=== PATIENT | male | born 1975 | race African-American/Black ===

== ENCOUNTER → 2017-09-30 | Outpatient (CLI) | payer BC ==
[2017-09-30 11:32] LABS: HEMATOCRIT 49.1 % (37.9-51.0); HEMOGLOBIN 16.6 g/dL (13.5-17.0); MEAN CORPUSCULAR HEMOGLOBIN 28.6 pg (27.0-33.4); MEAN CORPUSCULAR HGB CONC 33.8 g/dL (32.0-36.0); MEAN CORPUSCULAR VOLUME 85 fl (80-97); PLATELET COUNT 213 10^3/uL (150-450); RED CELL DISTRIBUTION WIDTH 13.8 % (11.5-14.0); WHITE BLOOD COUNT 5.9 10^3/uL (4.0-10.5)
[2017-09-30 12:08] LABS: ANION GAP 11 (5-19); BLOOD UREA NITROGEN 19 mg/dL (7-20); CARBON DIOXIDE 27 mmol/L (22-30); CHLORIDE 104 mmol/L (98-107); GLUCOSE 85 mg/dL (75-110); POTASSIUM 3.9 mmol/L (3.6-5.0); SODIUM 141.9 mmol/L (137-145)
== END ==
LOC: OD 10:21
PROVIDERS: ATTEND Internal Medicine Nephrology
DX: I12.9 Hypertensive chronic kidney disease with stage 1 through stage 4 chronic kidney disease, or unspecified chronic kidney disease (principal); N18.3 Chronic kidney disease, stage 3 (moderate); I50.9 Heart failure, unspecified
CPT/HCPCS: 36415; 80048; 85027

== ENCOUNTER → 2018-12-30 | Outpatient (CLI) | payer BC ==
--- NOTE | 2018-12-31 22:18 | XCELERA REPORT ---
[address] [address] Transthoracic Echocardiogram Report Name: GUY CURIEL Age: 43 yrs Gender: Male : 1975 Patient Status: Preadmit Patient Location: RAD Study Date: 12/30/2018 09:16 AM Height: 75 in Weight: 330 lb BSA: 2.7 m2 Procedure: A two-dimensional transthoracic echocardiogram with color flow and Doppler was performed. Study Quality: Good. Reason For Study: MURMUR Hypertension (I10). History: MURMUR / HTN (I10). Ordering Physician: JAYLA STEIN Performed By: Martha Treadwell Interpretation Summary The left ventricle is normal in size. The left ventricular ejection fraction is within normal limits. LV EF is 65% There is moderate concentric left ventricular hypertrophy. Doppler measurements suggest normal left ventricular diastolic function The left ventricular wall motion is normal. There is no thrombus. There is no ventricular septal defect visualized. The right ventricle is grossly normal size. The right atrium is normal. The left atrium is moderately dilated. The interatrial septum is intact with no evidence for an atrial septal defect. There is no Doppler evidence for an interatrial shunt There is no evidence of mitral valve prolapse. There is no vegetation seen on the mitral valve. There is no mitral valve stenosis. There is a trace amount of mitral regurgitation There is no aortic valvular vegetation. There is no aortic valve stenosis There is no LVOT obstruction. No aortic regurgitation is present. There is no tricuspid stenosis. There is a trace amount of tricuspid regurgitation Right ventricular systolic pressure is normal. RVSP is 25 to 30 mm of Hg , with RAmean of 5 to 10. There is no pulmonic valvular stenosis. There is a trace amount of pulmonic regurgitation The aortic root is normal size. The inferior vena cava appeared normal There is no pericardial effusion. MMode/2D Measurements & Calculations RVDd: 4.5 cm LVIDd: 5.6 cm FS: 36.2 % Ao root diam: 3.0 cm IVSd: 1.4 cm LVIDs: 3.6 cm EDV(Teich): LVPWd: 1.4 cm 154.0 ml Ao root area: ESV(Teich): 7.2 cm2 53.6 ml LA dimension: EF(Teich): 65.2 % 4.8 cm LVLd ap4: 10.4 cm SV(MOD-sp4): EDV(MOD-sp4): 112.0 ml 193.0 ml LVLs ap4: 8.8 cm ESV(MOD-sp4): 81.0 ml EF(MOD-sp4): 58.0 % Doppler Measurements & Calculations MV E max annamaria: MV P1/2t max annamaria: Ao V2 max: LV V1 max P.2 cm/sec 65.6 cm/sec 108.6 cm/sec 3.1 mmHg MV A max annamaria: MV P1/2t: 83.4 msec Ao max PG: LV V1 max: 53.8 cm/sec MVA(P1/2t): 2.6 cm2 4.7 mmHg 87.9 cm/sec MV E/A: 1.2 MV dec slope: 230.7 cm/sec2 MV dec time: 0.27 sec PA V2 max: PI end-d annamaria: TR max annamaria: MV P1/2t-pr_phl: 79.5 cm/sec 137.9 cm/sec 224.8 cm/sec 83.4 msec PA max PG: TR max P.5 mmHg 20.2 mmHg Left Ventricle The left ventricle is normal in size. There is moderate concentric left ventricular hypertrophy. The left ventricular ejection fraction is within normal limits. LV EF is 65%. Doppler measurements suggest normal left ventricular diastolic function. The left ventricular wall motion is normal. There is no thrombus. There is no ventricular septal defect visualized. Right Ventricle The right ventricle is grossly normal size. The right ventricle is not well visualized secondary to technical limitations. Atria The right atrium is normal. The left atrium is moderately dilated. The interatrial septum is intact with no evidence for an atrial septal defect. There is no Doppler evidence for an interatrial shunt. Mitral Valve There is no evidence of mitral valve prolapse. There is no vegetation seen on the mitral valve. There is no mitral valve stenosis. There is a trace amount of mitral regurgitation. Aortic Valve There is no aortic valvular vegetation. There is no aortic valve stenosis. There is no LVOT obstruction. No aortic regurgitation is present. Tricuspid Valve There is no tricuspid stenosis. There is a trace amount of tricuspid regurgitation. Right ventricular systolic pressure is normal. RVSP is 25 to 30 mm of Hg , with RAmean of 5 to 10. Pulmonic Valve There is no pulmonic valvular stenosis. There is a trace amount of pulmonic regurgitation. Great Vessels The aortic root is normal size. The inferior vena cava appeared normal. Effusions There is no pericardial effusion. : JAYLA STEIN > Jayla Stein
== END ==
LOC: RAD 08:42
PROVIDERS: ATTEND Specialist
DX: R01.1 Cardiac murmur, unspecified (principal)
CPT/HCPCS: 93306

== ENCOUNTER → 2019-04-02 | Outpatient (CLI) | payer BC ==
[2019-04-02 14:37] LABS: HEMOGLOBIN 16.3 g/dL (13.5-17.0); MEAN CORPUSCULAR HEMOGLOBIN 28.8 pg (27.0-33.4); MEAN CORPUSCULAR HGB CONC 33.9 g/dL (32.0-36.0); MEAN CORPUSCULAR VOLUME 85 fl (80-97); PLATELET COUNT 201 10^3/uL (150-450); RED BLOOD COUNT 5.65 10^6/uL (4.35-5.55); RED CELL DISTRIBUTION WIDTH 13.7 % (11.5-14.0); WHITE BLOOD COUNT 7.2 10^3/uL (4.0-10.5)
[2019-04-02 15:07] LABS: ANION GAP 9 (5-19); BLOOD UREA NITROGEN 23 mg/dL (7-20); CALCIUM 9.7 mg/dL (8.4-10.2); CARBON DIOXIDE 31 mmol/L (22-30); CHLORIDE 102 mmol/L (98-107); GLUCOSE 88 mg/dL (75-110); POTASSIUM 4.6 mmol/L (3.6-5.0)
== END ==
LOC: OD 13:07
PROVIDERS: ATTEND Internal Medicine Nephrology
DX: I13.0 Hypertensive heart and chronic kidney disease with heart failure and stage 1 through stage 4 chronic kidney disease, or unspecified chronic kidney disease (principal); N18.3 Chronic kidney disease, stage 3 (moderate); I50.9 Heart failure, unspecified
CPT/HCPCS: 36415; 80048; 85027

== ENCOUNTER → 2019-04-22 | Outpatient (CLI) | payer BC ==
[2019-04-22 11:24] LABS: ABSOLUTE EOSINOPHILS # (AUTO) 0.2 10^3/uL (0.0-0.6); ABSOLUTE LYMPHOCYTES (AUTO) 1.8 10^3/uL (0.5-4.7); ABSOLUTE MONOCYTES (AUTO) 0.6 10^3/uL (0.1-1.4); ABSOLUTE NEUT (AUTO) 3.8 10^3/uL (1.7-8.2); BASOPHILS % (AUTO) 0.4 % (0-2); EOSINOPHILS % (AUTO) 3.5 % (0-6); HEMATOCRIT 48.2 % (37.9-51.0); HEMOGLOBIN 16.3 g/dL (13.5-17.0); LYMPHOCYTES % (AUTO) 27.9 % (13-45); MEAN CORPUSCULAR HEMOGLOBIN 28.8 pg (27.0-33.4); MEAN CORPUSCULAR HGB CONC 33.9 g/dL (32.0-36.0); MEAN CORPUSCULAR VOLUME 85 fl (80-97); MONOCYTES % (AUTO) 9.1 % (3-13); PLATELET COUNT 207 10^3/uL (150-450); RED BLOOD COUNT 5.66 10^6/uL (4.35-5.55); RED CELL DISTRIBUTION WIDTH 14.1 % (11.5-14.0); SEGMENTED NEUTROPHILS % (AUTO) 59.1 % (42-78); TOTAL CELLS COUNTED % (AUTO) 100 %; WHITE BLOOD COUNT 6.5 10^3/uL (4.0-10.5)
[2019-04-22 11:52] LABS: ALBUMIN 4.2 g/dL (3.5-5.0); ALKALINE PHOSPHATASE 59 U/L (38-126); ANION GAP 8 (5-19); ASPARTATE AMINO TRANSFERASE 27 U/L (17-59); BILIRUBIN,DIRECT 0.3 mg/dL (0.0-0.4); BILIRUBIN,TOTAL 0.7 mg/dL (0.2-1.3); BLOOD UREA NITROGEN 24 mg/dL (7-20); CALCIUM 9.8 mg/dL (8.4-10.2); CARBON DIOXIDE 31 mmol/L (22-30); CHLORIDE 104 mmol/L (98-107); GLUCOSE 98 mg/dL (75-110); POTASSIUM 4.2 mmol/L (3.6-5.0); TOTAL PROTEIN 7.3 g/dL (6.3-8.2)
[2019-04-22 12:04] LABS: ALBUMIN 4.3 g/dL (3.5-5.0); ANION GAP 7 (5-19); BLOOD UREA NITROGEN 24 mg/dL (7-20); CALCIUM 9.8 mg/dL (8.4-10.2); CARBON DIOXIDE 30 mmol/L (22-30); CHLORIDE 107 mmol/L (98-107); GLUCOSE 99 mg/dL (75-110); POTASSIUM 4.2 mmol/L (3.6-5.0)
== END ==
LOC: OD 10:52
PROVIDERS: ATTEND Internal Medicine Nephrology
DX: I12.9 Hypertensive chronic kidney disease with stage 1 through stage 4 chronic kidney disease, or unspecified chronic kidney disease (principal); N18.3 Chronic kidney disease, stage 3 (moderate)
CPT/HCPCS: 36415; 80053; 80069; 85025

== ENCOUNTER 2019-10-25 11:12 | Emergency (ER) | payer BC ==
--- NOTE | 2019-10-25 11:36 | ER Document Report ---
ED Medical Screen (RME) - General Chief Complaint: Foot Pain Stated Complaint: LEFT FOOT PAIN Time Seen by Provider: 10/25/19 11:31 Primary Care Provider: Carlos HERNANDEZ MD [Primary Care Provider] - Follow up as needed Notes: 43 y/o male presents with left ankle/left foot pain/swelling since Saturday. states she took him to ER on Saturday and he had an x-ray done and given ibuprofen, states "something needs to be done!" States no history of diabetes. Pt states he has history of old ankle injuries. Denies any recent injury. Distal pedal pulses 2+, mild swelling noted. Mild erythema noted to left medial foot. I have greeted and performed a rapid initial assessment of this patient. A comprehensive ED assessment and evaluation of the patient, analysis of test results and completion of the medical decision making process with be conducted by additional ED providers. TRAVEL OUTSIDE OF THE [place] IN LAST 30 DAYS: No - Related Data Allergies/Adverse Reactions: ibuprofen Adverse Reaction (Verified 10/25/19 11:35) Past Medical History - Social History Chew tobacco use (# tins/day): No Frequency of alcohol use: None Drug Abuse: None - Past Medical History Cardiac Medical History: Reports: Hx Hypertension Renal/ Medical History: Reports: Hx Renal Insufficiency Physical Exam - Vital signs Vitals: Temp Pulse Resp BP Pulse Ox 99.2 F 69 18 147/89 H 98 10/25/19 11:24 10/25/19 11:24 10/25/19 11:24 10/25/19 11:24 10/25/19 11:24 Course - Vital Signs Vital signs: Temp Pulse Resp BP Pulse Ox 99.2 F 69 18 147/89 H 98 10/25/19 11:24 10/25/19 11:24 10/25/19 11:24 10/25/19 11:24 10/25/19 11:24 Doctor's Discharge - Discharge Referrals: Carlos HERNANDEZ MD [Primary Care Provider] - Follow up as needed
[2019-10-25 12:14] LABS: ABSOLUTE MONOCYTES (AUTO) 0.7 10^3/uL (0.1-1.4); ABSOLUTE NEUT (AUTO) 10.5 10^3/uL (1.7-8.2); BASOPHILS % (AUTO) 0.2 % (0-2); EOSINOPHILS % (AUTO) 0.2 % (0-6); HEMATOCRIT 46.7 % (37.9-51.0); HEMOGLOBIN 15.7 g/dL (13.5-17.0); LYMPHOCYTES % (AUTO) 8.3 % (13-45); MEAN CORPUSCULAR HEMOGLOBIN 28.8 pg (27.0-33.4); MEAN CORPUSCULAR HGB CONC 33.6 g/dL (32.0-36.0); MEAN CORPUSCULAR VOLUME 86 fl (80-97); PLATELET COUNT 196 10^3/uL (150-450); RED BLOOD COUNT 5.46 10^6/uL (4.35-5.55); RED CELL DISTRIBUTION WIDTH 13.8 % (11.5-14.0); SEGMENTED NEUTROPHILS % (AUTO) 85.3 % (42-78); TOTAL CELLS COUNTED % (AUTO) 100 %; WHITE BLOOD COUNT 12.3 10^3/uL (4.0-10.5)
--- NOTE | 2019-10-25 12:15 | RADIOLOGY REPORT (SQ) ---
EXAM DESCRIPTION: ANKLE LEFT COMPLETE; FOOT LEFT COMPLETE COMPLETED DATE/TIME: 10/25/2019 12:05 pm REASON FOR STUDY: left foot/ankle pain for 3 days COMPARISON: None. FINDINGS: Three views left ankle: Well corticated spur or old avulsion off the medial malleolus. S imilar corticated fragment lateral to the talus, chronic fragment. Small effusion. Mortise maintain ed. Talar dome intact. No acute fracture. Three views left foot: Sided specific clinical concern not indicated which limits. No bone, joint o r soft tissue abnormality. TECHNICAL DOCUMENTATION: JOB ID: [id number] Reading location - IP/workstation name: [email or web address]
--- NOTE | 2019-10-25 12:15 | RADIOLOGY REPORT (SQ) ---
EXAM DESCRIPTION: ANKLE LEFT COMPLETE; FOOT LEFT COMPLETE COMPLETED DATE/TIME: 10/25/2019 12:05 pm REASON FOR STUDY: left foot/ankle pain for 3 days COMPARISON: None. FINDINGS: Three views left ankle: Well corticated spur or old avulsion off the medial malleolus. S imilar corticated fragment lateral to the talus, chronic fragment. Small effusion. Mortise maintain ed. Talar dome intact. No acute fracture. Three views left foot: Sided specific clinical concern not indicated which limits. No bone, joint o r soft tissue abnormality. TECHNICAL DOCUMENTATION: JOB ID: [id number] Reading location - IP/workstation name: [email or web address]
[2019-10-25 12:25] LABS: ANION GAP 8 (5-19); BLOOD UREA NITROGEN 18 mg/dL (7-20); CALCIUM 9.5 mg/dL (8.4-10.2); CARBON DIOXIDE 29 mmol/L (22-30); CHLORIDE 102 mmol/L (98-107); GLUCOSE 116 mg/dL (75-110); POTASSIUM 3.7 mmol/L (3.6-5.0); URIC ACID 9.6 mg/dL (3.5-8.5)
--- NOTE | 2019-10-25 14:33 | ER Document Report ---
ED Extremity Problem, Lower - General Chief Complaint: Foot Pain Stated Complaint: LEFT FOOT PAIN Time Seen by Provider: 10/25/19 11:31 Primary Care Provider: Carlos HERNANDEZ MD [ACTIVE STAFF] - Follow up as needed Notes: This 43-year-old man presents to the emergency department with a complaint of left foot and ankle pain. He woke up this morning with the foot and ankle swollen and tender and red. He has a history of injury to the area while playing football in high school. He has had episodic flareups involving the right side this is the first time that his left ankle and foot has swollen spontaneously. Also notes that he has some renal insufficiency and was told to avoid NSAIDs. TRAVEL OUTSIDE OF THE [place] IN LAST 30 DAYS: No - Related Data Allergies/Adverse Reactions: ibuprofen Adverse Reaction (Verified 10/25/19 11:35) Past Medical History - Social History Smoking Status: Never Smoker Chew tobacco use (# tins/day): No Frequency of alcohol use: None Drug Abuse: None Family History: Reviewed & Not Pertinent Patient has suicidal ideation: No Patient has homicidal ideation: No - Past Medical History Cardiac Medical History: Reports: Hx Hypertension Renal/ Medical History: Reports: Hx Renal Insufficiency Review of Systems - Review of Systems Notes: Constitutional: Negative for fever. HENT: Negative for sore throat. Eyes: Negative for visual changes. Cardiovascular: Negative for chest pain. Respiratory: Negative for shortness of breath. Gastrointestinal: Negative for abdominal pain, vomiting or diarrhea. Genitourinary: Negative for dysuria. Musculoskeletal: + Left ankle and left foot pain, + left ankle and left foot swelling. Skin: Negative for rash. Neurological: Negative for headaches, weakness or numbness. 10 point ROS negative except as marked above and in HPI. Physical Exam - Vital signs Vitals: Temp Pulse Resp BP Pulse Ox 99.2 F 69 18 147/89 H 98 10/25/19 11:24 10/25/19 11:24 10/25/19 11:24 10/25/19 11:24 10/25/19 11:24 - Notes Notes: PHYSICAL EXAMINATION: Physical Exam: General: Well-nourished well-developed 43-year-old man in no acute distress HEENT: NC/AT, pupils equal round and reactive to light, MM moist,nares clear, Neck: supple, no adenopathy, no masses. Lungs: clear, no wheezing, no rales no rhonchi CVS: Regular rate and rhythm no murmur gallop or rub Abdomen: Soft active nontender, no masses, no hepatosplenomegaly Ext: Left foot with swelling in the lateral aspect and tenderness, decreased r diana of motion at the left ankle with swelling around the lateral malleolus region and point tenderness/edema. There is erythema noted in the dorsal aspect of the lateral left foot with increased warmth. Neuro: Alert and responsive, moving all 4 extremities on command, cranial nerves intact. Skin: Intact no open lesions, no rash PSYCH: Normal mood, normal affect. Course - Vital Signs Vital signs: Temp Pulse Resp BP Pulse Ox 99.2 F 69 18 147/89 H 98 10/25/19 11:24 10/25/19 11:24 10/25/19 11:24 10/25/19 11:24 10/25/19 11:24 - Laboratory Result Diagrams: 10/25/19 11:50 10/25/19 11:50 Laboratory results interpreted by me: 10/25/19 10/25/19 11:50 11:50 WBC 12.3 H Lymph % (Auto) 8.3 L Absolute Neuts (auto) 10.5 H Seg Neutrophils % 85.3 H Creatinine 1.86 H Est GFR ( Amer) 48 L Est GFR (MDRD) Non-Af 40 L Glucose 116 H Uric Acid 9.6 H 10/25/19 14:38 I have reviewed laboratory data and used this information for the treatment decisions regarding the patient. - Diagnostic Test Radiology reviewed: Image reviewed, Reports reviewed - Left foot x-ray: Chronic changes noted, old chip fractures well-circumscribed also noted on the ankle x- ray. Left ankle 3 view: Left ankle with chronic changes, bone spur or avulsion at the lateral malleolus, plus lateral avulsion well-circumscribed of the talus with chronic fragment noted. There is a small effusion also noted. And a well maintained mortise. Discharge - Discharge Clinical Impression: Left lateral ankle pain, Left foot pain, Osteoarthritis of left ankle and foot Condition: Good Disposition: HOME, SELF-CARE Instructions: Use of Crutches (OM), Ice & Elevation ([facility]) Additional Instructions: You are diagnosed with osteoarthritis involving your left foot and ankle, please elevate use ice and use the pain medications as prescribed [place]. Please follow-up with your primary care doctor regarding the long-term management of this problem. You are given a note to excuse you from work on Saturday, please contact your doctor regarding a longer term excuse from your workplace. If you develop new or concerning problems you may return to the emergency department for further evaluation and treatment. Prescriptions: Hydrocodone/Acetaminophen [[place] 5-325 mg Tablet] 1 tab PO Q6 PRN #10 tablet PRN Reason: Referrals: Carlos HERNANDEZ MD [ACTIVE STAFF] - Follow up as needed
[2019-10-25 15:17] VITALS: BP 182/95
== END 2019-10-25 15:22 | disposition home or self-care (01) ==
LOC: ER 11:12
DX: M19.072 Primary osteoarthritis, left ankle and foot (principal); M79.672 Pain in left foot; M25.572 Pain in left ankle and joints of left foot; M79.89 Other specified soft tissue disorders; I10 Essential (primary) hypertension
CPT/HCPCS: 36415; 80048; 84550; 85025; 99283